=== PATIENT | female | born 1965 | race Caucasian/White ===

== ENCOUNTER 2021-10-02 13:51 | Emergency (ER) | payer OTHER ==
[2021-10-02 13:59] VITALS: TEMP 98.1
--- NOTE | 2021-10-02 15:09 | ED ---
General Adult HPI - General Chief complaint: Altered Mental Status Stated complaint: Altered Mental Status Time Seen by Provider: 10/02/21 14:01 Source: EMS, RN notes reviewed Mode of arrival: EMS Limitations: no limitations - History of Present Illness Initial comments: 56-year-old female with a past medical history of liver cancer presents to the emergency room for a chief complaint of confusion. Patient's sister is her power of senior geologist. She states that patient has terminal pancreatic cancer and has 3-6 months to live. She is currently staying at a [facility] but insurance is only improving as through as she is not rehabable. She is supposed to be going to a senior living on . However [facility] of her increased [facility]. History states she just had a full workup for this at [facility] 2 weeks ago and they do not want any intervention done. They're currently trying to put her on hospice.Patient has no other complaints at this time including shortness of breath, chest pain, abdominal pain, nausea or vomiting, headache, or visual changes. - Related Data Allergies Allergy/AdvReac Type Severity Reaction Status Date / Time Penicillins AdvReac Rash/Hives Verified 10/02/21 15:03 Review of Systems ROS Statement: Those systems with pertinent positive or pertinent negative responses have been documented in the HPI. ROS Other: All systems not noted in ROS Statement are negative. Past Medical History Past Medical History: Unable to Obtain, Cancer Additional Past Medical History / Comment(s): Liver cancer History of Any Multi-Drug Resistant Organisms: Unobtainable Past Surgical History: Unable to Obtain Past Psychological History: Unable to Obtain Smoking Status: Never smoker Past Alcohol Use History: None Reported Past Drug Use History: None Reported General Exam Limitations: no limitations General appearance: alert, in no apparent distress Head exam: Present: atraumatic Eye exam: Present: PERRL, EOMI, scleral icterus. Absent: conjunctival injection ENT exam: Present: normal exam, mucous membranes moist Neck exam: Present: normal inspection, full ROM. Absent: tenderness Respiratory exam: Present: normal lung sounds bilaterally. Absent: respiratory distress, wheezes Cardiovascular Exam: Present: regular rate, normal rhythm, normal heart sounds Neurological exam: Present: alert Course Vital Signs 10/02/21 13:53 Temperature 98.1 F Pulse Rate 83 Respiratory 18 Rate Blood Pressure 95/62 O2 Sat by Pulse 95 Oximetry Medical Decision Making - Medical Decision Making Vitals are stable. Patient is appearing somewhat jaundiced and is weak. However this is patient's baseline according to sister. Patient is a no code. I did offer a full workup for confusion however sister does not want any investigation as she just had a full workup for this 2 weeks ago. I did offer urine just a urinalysis however given patient's prognosis she prefers not to do this. She would like to get patient into a hospice care situation. Case was discussed with case management BAILEE Durán. Leeanna was able to get hospice equipment over to the senior living and patient will go there to start hospice and comfort care. Disposition Clinical Impression: Pancreatic cancer, Altered mental status Disposition: HOME SELF-CARE Is patient prescribed a controlled substance at d/c from ED?: No Referrals: Keith Roy MD [Primary Care Provider] - 1-2 days Time of Disposition: 16:07
[2021-10-02 18:42] VITALS: BP 102/62; PULSE 82; RESP 16
== END 2021-10-02 18:35 | disposition home or self-care (01) ==
LOC: EC 13:51
DX: R41.82 Altered mental status, unspecified (principal); C25.9 Malignant neoplasm of pancreas, unspecified
CPT/HCPCS: 99284